=== PATIENT | female | born 1945 | race Caucasian/White ===

== ENCOUNTER 2020-08-31 02:21 | Inpatient (IN) ==
--- NOTE | 2020-08-31 02:38 | ERNOTE ---
Neuro HPI ER Record Date of Service: 08/31/20 Presenting Symptoms: confusion Time Seen by Provider: 08/31/20 02:29 Immunizations: IMMUNIZATION HX Immunizations Up to Date Yes History of Influenza Vaccine Yes Hx Pneumococcal Vaccination No Allergies/Adverse Reactions: Allergies Allergy/AdvReac Type Severity Reaction Status Date / Time indomethacin Allergy not known Verified 08/31/20 03:22 metformin [From Glucophage] Allergy not known Verified 08/31/20 03:22 Penicillins Allergy not known Verified 08/31/20 03:22 pioglitazone [From Actos] Allergy not known Verified 08/31/20 03:22 Ppavhwo-Atq-Men Reductase Allergy not known Verified 08/31/20 03:22 Inhibitor strawberry Allergy Hives Verified 08/31/20 03:22 Home Medications: HOME MEDICATIONS blood sugar diagnostic See Rx Instructions .ROUTE .COMPLEX #500 unspecified 04/17/19 [Last Taken Unknown] pen needle, diabetic 32 gauge x 532" See Dose Instructions .ROUTE .MEDSUPPLY #500 ea 05/21/20 [Last Taken Unknown] lorazepam 1 mg tablet 1 mg PO BID #30 tab 08/13/20 [Last Taken Unknown] Aspirin 325 mg PO DAILY 08/29/20 [Last Taken Unknown] Clopidogrel Bisulfate [Plavix] 75 mg PO DAILY 08/29/20 [Last Taken Unknown] Lisinopril 20 mg PO DAILY 08/29/20 [Last Taken Unknown] Metoprolol Tartrate 50 mg PO DAILY 08/29/20 [Last Taken Unknown] amlodipine 10 mg tablet 10 mg PO DAILY #90 tab 08/29/20 [Last Taken Unknown] insulin aspart U-100 100 unit/mL (3 mL) subcutaneous pen 15 unit SUBCUT TID #15 ml 08/29/20 [Last Taken Unknown] insulin detemir U-100 100 unit/mL (3 mL) subcutaneous pen 25 unit SUBCUT BID #15 ml 08/29/20 [Last Taken Unknown] - History of Present Illness Narrative: Patient was found unresponsive by family at home after she had gotten up to go to bathroom. EMS found unresponsive, bs 46 at arrival. admin 1 amp d50. pt here is arousable however confused, seems to be neglecting the right side, not able to follow commands. BS here is 178. she is sent immediately to [facility]. pt arrives back from [facility] and arrives. she is improving. able to follow more commands, less confused, no longer neglecting. she is A & O to person and place. able to move extremities, sensation intact. no facial droop. reports that she has been falling and has been weak. he doesn't know if she took her insulin and doesn't recall what Dr. Castro said to do at [facility]. She had appt on 08/29 and was seen in er also on 08/29 for fall on the knees. He has had difficulty getting her to move lately, after she broke her foot in April. Review of Systems - Narrative Narrative: unable at arrival - Review of Systems Constitutional: Present: weakness, malaise. Absent: fever, chills ENT: Present: no symptoms reported Respiratory: Present: no symptoms reported Cardiology: Present: no symptoms reported Neurological: Present: weakness - nonfocal Medical History (Last Reviewed 08/31/20 @ 02:35 by Patsy Madsen MD) Sleep apnea (Chronic) Hypertension (Chronic) Diverticulitis (Chronic) Diabetes mellitus (Chronic) CVA (cerebral vascular accident) (Chronic) Surgical History: Surgical History (Last Reviewed 08/31/20 @ 02:35 by Patsy Madsen MD) H/O adenoidectomy H/O tubal ligation History of cholecystectomy Family History: Family History (Last Reviewed 08/31/20 @ 02:36 by Patsy Madsen MD) Father ALS (amyotrophic lateral sclerosis) Mother Diabetes Social History: (Last Reviewed 08/31/20 @ 02:36 by Patsy Madsen MD) Social History: current occupational status: retired Tobacco: Smoking Status: Never smoker Alcohol: alcohol intake: never Substance Use: substance use type: does not use Exercise: frequency: 1-2 times per week Physical Exam - Physical Exam General Appearance: Present: moderate distress - confused, responds to verbal stimuli, looks left. does not follow commands, obese Head Exam: Present: normal inspection Eye Exam: Normal inspection: bilateral, PERRL: bilateral Ears, Nose, Throat: Present: normal except -, dry mucous membranes Neck: Present: normal inspection Respiratory: Present: no respiratory distress, lungs clear Cardiovascular/Chest: Present: regular rate, rhythm Gastrointestinal/Abdominal: Present: normal bowel sounds, nontender, soft Pelvic Exam: Present: other - erythematous, excoriated, unkempt, white discharge present, signs of yeast/ cheko Back Exam: Present: other - unable to fully examine, pt will not allow rolling/ turning Extremity Exam: Present: extremity edema - 2+, other - confused re: organisation and methods analyst exam, moves UE moves LE purposfully. intact sensation. skin is warm and dry. there is dry feces present on lower ext. Neurological Exam: Present: alert, disoriented to time. Absent: facial droop Progress - Results and Orders Patient's Lab Results:: I have reviewed the patient's lab results. Results and Orders: Laboratory Tests 08/31/20 08/31/20 08/31/20 03:00 03:00 03:00 WBC 17.0 H D Hgb 15.0 Hct 46.8 Plt Count 406 PT 10.1 INR (Anticoag Therapy) 0.97 PTT ([place]) 24.2 Sodium 139 Potassium 3.2 L D Chloride 101 Anion Gap 17.6 H BUN 19 Creatinine 1.28 BUN/Creatinine Ratio 14.8 Random Glucose 126 H D Calcium 9.9 Total Bilirubin 0.5 AST 11 ALT 17 L Troponin I Less than 0.017 Laboratory Tests 08/31/20 03:00 Lactic Acid, Venous 5.6 H* Laboratory Tests 08/31/20 03:44 Ur Specific [place] >=1.030 Urine Protein 100 H Urine Glucose (UA) 500 H Urine Ketones 5 Urine Blood 10 H Urine Nitrate Negative Urine Bilirubin 1 H Urine Urobilinogen Normal Ur Leukocyte Esterase 100 H Urine RBC None seen Urine WBC >50 H Ur Epithelial Cells None seen Urine Bacteria Trace Urine Yeast Few - 1+ H Laboratory Tests 08/31/20 03:45 SARS-CoV-2 (PCR) Not detected - Vital Signs Patient's Vital Signs:: I have reviewed the patient's vital signs. - EKG EKG #1 EKG: NSR EKG read: Interp. by me EKG Comments: EKG shows sinus tachycardia, rate is 112. There is left anterior fascicular block present. There is evidence of possible anterior and inferior LA of indeterminate age. There is no acute ST elevation or depression noted. - X-Ray X-Ray #1 X-Ray: chest Interpretation: Interp. by me X-ray Comments: poor quality d/t pt compliance. nonspecific generalized hazy opacifications r>l most likely d/t poor inspiration. - CT/Ultrasound CT/Ultrasound Narrative: CT scan shows no acute findings however the exam is difficult due to patient's noncompliance. no acute bleed - Progress/Reassessment Chief Complaint: Altered Mental Status Progress:: Improved Progress Note-Subjective: 08/31/20 03:49 Patient's symptoms continued to improve. IV fluids going she did require another amp of D50 here in the emergency department after receiving 1 in the field. Urine obtained by catheterization is quite dark and foul-smelling. She continued to be somewhat confused although was much more able to follow commands. 08/31/20 04:48 Patient stabilized using IV fluids, potassium replacement. Her blood sugar remained stable as well. She is given first dose of antibiotics for UTI, total of 2 L of IV fluids while in the emergency department. She is also given a dose of oral Diflucan due to vaginal yeast infection which will get worse during antibiotic treatment. Her Covid test is negative. Hospitalist is contacted and case is discussed. She does not meet sepsis criteria per se, she has elevated lactic acid most likely due to prolonged dehydration and poor perfusion as well as infection. The remainder of her vitals are stable although she is dehydrated. She will be admitted here for the UTI, generalized weakness, continued monitoring of the hypoglycemia associated with diabetes. Family can discuss with case management about the difficulty caring for her at home and possible skilled nursing placement. Departure Clinical Impression: UTI (urinary tract infection), Hypoglycemia due to type 2 diabetes mellitus, Generalized weakness, Hypokalemia, Yeast vaginitis - Departure Disposition: Still a patient Condition: Fair Referrals: Adore Castro MD [Primary Care Provider] -
[2020-08-31] MEDS ORDERED: DEXTROSE 50%-WATER 50 ML SYRG IV ONE (03:04)
[2020-08-31] MEDS ORDERED: NORMAL SALINE 1,000 ML IV ONE ×2 (03:10→04:20)
[2020-08-31 03:14] LABS: Hematocrit 46.8 % (37.0-47.0); Mean Corpuscular Hemoglobin 30.1 pg (27-31); Mean Corpuscular Hgb Conc 32.1 g/dl (32-36); Mean Platelet Volume 11.6 fl (8-12.5); Neutrophil # 13.9 K/mm3 (1.3-6.0); Neutrophil % 81.6 % (42-75.0); Platelet Count 406 K/mm3 (150-450); Red Blood Count 4.98 M/mm3 (4.2-5.4); Red Cell Distribution Width 14.4 % (11.5-14.0)
[2020-08-31 03:21] LABS: Prothrombin Time (Patient) 10.1 Seconds (9.1-10.7)
[2020-08-31 03:23] LABS: INR 0.97 INR (0.92-1.08); Partial Thrombolplastin Time 24.2 Seconds (24-32)
[2020-08-31 03:37] LABS: ALT 17 U/L (19-67); AST 11 U/L (0-48); Albumin * 2.8 gm/dl (3.4-5.0); Alkaline Phosphatase * 97 U/L (50-170); Anion Gap 17.6 mmol/L (6.8-13.8); BUN/Creatinine Ratio 14.8 (9.0-21.6); Bilirubin, Total 0.5 mg/dL (0.0-1.1); Blood Urea Nitrogen 19 mg/dL (3-23); Ca. Corrected For Albumin 10.5 mg/dL (8.4-10.2); Calcium * 9.9 mg/dL (7.9-10.9); Carbon Dioxide 23.6 mmol/L (24-32.6); Chloride 101 mmol/L (97-106); Glucose * 126 mg/dL (70-110); Potassium 3.2 mmol/L (3.4-4.6); Sodium 139 mmol/L (132-142); Troponin I Less than 0.017 ng/mL (0.00-0.10)
[2020-08-31] MEDS ORDERED: POTASSIUM CHLORIDE 20 MEQ TABLET.SA PO ONE (03:48)
[2020-08-31 03:57] LABS: Urine Bilirubin 1 mg/dl (NEGATIVE); Urine Ketone 5 mg/dL (NEGATIVE); Urine Nitrite Negative (NEGATIVE); Urine Protein 100 mg/dL (NEGATIVE); Urine Specific Gravity >=1.030 SP.GR. (1.005-1.010); Urine Urobilinogen Normal (NORMAL); Urine pH 5.5 pH (5.0-7.0)
[2020-08-31] MEDS ORDERED: cefTRIAXone SODIUM 1,000 MG/100 ML BAG IV ONE (03:57)
[2020-08-31 04:14] LABS: Urine Appearance Cloudy (CLEAR); Urine Bacteria TRACE; Urine Blood 10 /ul (NEGATIVE); Urine Color Yellow; Urine RBC None Seen /hpf (0-5); Urine WBC >50 /hpf (0-5); Urine Yeast Few - 1+
[2020-08-31] MEDS ORDERED: FLUCONAZOLE 100 MG TABLET PO ONE (04:35)
[2020-08-31] MEDS ORDERED: LORazepam 1 MG TABLET PO PRN (08:16)
[2020-08-31] MEDS: CLOPIDOGREL BISULFATE 75 MG TABLET PO SCH (09:09)
[2020-08-31] MEDS: LISINOPRIL 20 MG TABLET PO SCH (09:09)
[2020-08-31] MEDS: ASPIRIN 325 MG TABLET.DR PO SCH (09:09)
[2020-08-31] MEDS: METOPROLOL TARTRATE 50 MG TABLET PO SCH (09:09)
[2020-08-31] MEDS: amLODIPine BESYLATE 10 MG TABLET PO SCH (09:09)
[2020-08-31] MEDS: ACETAMINOPHEN 500 MG TABLET PO PRN (11:00)
[2020-08-31] MEDS: DICLOFENAC SODIUM 100 APPL TUBE TP SCH ×2 (11:01→20:19)
[2020-08-31] MEDS: INSULIN LISPRO 100 UNITS/ML VIAL SC SCH ×2 (11:54→16:47)
[2020-08-31] MEDS: INSULIN GLARGINE,HUM.REC.ANLOG 100 UNITS/ML VIAL SC SCH (20:20)
[2020-08-31] MEDS: NYSTATIN 15 APPL BTL TP SCH (20:24)
--- NOTE | 2020-08-31 23:27 | HP ---
Chief Complaint - Chief Complaint Date of Service: 08/31/20 Time of Service: 10:15 Chief Complaint: Generalized weakness History of Present Illness: Joe is a 75 yo female that was found unresponsive by family at home after she had gotten up to go to the bathroom. EMS was called and arrived to find her unresponsive with a blood sugar of 46. They administered 1 amp of D50. By the time she arrived to the ER she was arousable but confused. She appeared to be neglecting her right side and was sent to Head Ct which was negative for stroke. In the ER she continued to improve in alertness. She has reportedly been falling lately. A few days ago she fell outside of the clinic trying to get into her truck. She landed awkwardly on her knees and legs bent underneath her. She was taken to the ER for that event but there were no new f ractures. She previously broke her foot in April and those fractures have been healing. She does not know why she has been more weak and does not know why her blood sugars were so low. She does not think there has been a change in her insulin and she thinks that she has been taking it correctly. Medical History (Last Reviewed 08/31/20 @ 06:57 by Moni Thompson RN) Sleep apnea (Chronic) Hypertension (Chronic) Diverticulitis (Chronic) Diabetes mellitus (Chronic) CVA (cerebral vascular accident) (Chronic) Surgical History: Surgical History (Last Reviewed 08/31/20 @ 06:57 by Moni Thompson RN) H/O adenoidectomy H/O tubal ligation History of cholecystectomy Family History: Family History (Last Reviewed 08/31/20 @ 06:58 by Moni Thompson RN) Father ALS (amyotrophic lateral sclerosis) Mother Diabetes Social History: (Last Reviewed 08/31/20 @ 06:58 by Moni Thompson RN) Social History: current occupational status: retired Tobacco: Smoking Status: Never smoker Alcohol: alcohol intake: never Substance Use: substance use type: does not use Exercise: frequency: 1-2 times per week Review Of Systems (GEN) - Review of Systems Generalized/Overall Review: Present: Weakness, Fatigue. Absent: Chills, Fever EENTM: Present: No Symptoms Reported Respiratory: Absent: Cough, Shortness of Breath Cardiac: Absent: Chest Pain, Edema, Palpitations Abdominal: Absent: Nausea, Vomiting Genitourinary: Absent: Burning, Urgency, Frequency Musculoskeletal: Present: Joint Pain, Joint Swelling Neurological: Present: Weakness. Absent: Headache, Anxiety Skin: Present: No Symptoms Reported Endocrine: Present: No Symptoms Reported Immunizations: IMMUNIZATION HX Immunizations Up to Date Yes History of Influenza Vaccine Yes Hx Pneumococcal Vaccination No Allergies/Adverse Reactions: Allergies Allergy/AdvReac Type Severity Reaction Status Date / Time indomethacin Allergy not known Verified 08/31/20 06:58 metformin [From Glucophage] Allergy not known Verified 08/31/20 06:58 Penicillins Allergy not known Verified 08/31/20 06:58 pioglitazone [From Actos] Allergy not known Verified 08/31/20 06:58 Nkmzhhc-Uno-Rsk Reductase Allergy not known Verified 08/31/20 06:58 Inhibitor strawberry Allergy Hives Verified 08/31/20 06:58 Home Medications: HOME MEDICATIONS blood sugar diagnostic See Rx Instructions .ROUTE .COMPLEX #500 unspecified 04/17/19 [Last Taken Unknown] pen needle, diabetic 32 gauge x " See Dose Instructions .ROUTE .MEDSUPPLY #500 ea 05/21/20 [Last Taken Unknown] lorazepam 1 mg tablet 1 mg PO BID #30 tab 08/13/20 [Last Taken Unknown] Aspirin 325 mg PO DAILY 08/29/20 [Last Taken Unknown] Clopidogrel Bisulfate [Plavix] 75 mg PO DAILY 08/29/20 [Last Taken Unknown] Lisinopril 20 mg PO DAILY 08/29/20 [Last Taken Unknown] Metoprolol Tartrate 50 mg PO DAILY 08/29/20 [Last Taken Unknown] amlodipine 10 mg tablet 10 mg PO DAILY #90 tab 08/29/20 [Last Taken Unknown] insulin aspart U-100 100 unit/mL (3 mL) subcutaneous pen 15 unit SUBCUT TID #15 ml 08/29/20 [Last Taken Unknown] Insulin Detemir [Levemir FlexTouch U-100 Insuln] 25 unit SUBCUT HS 08/31/20 [Last Taken Unknown] Exam - Exam Vital Signs: Vital Signs - Last Taken Temp 36.7 C 08/31/20 22:25 Pulse 96 08/31/20 22:25 Resp 20 08/31/20 22:25 BP 141/60 08/31/20 22:25 Pulse Ox 96 08/31/20 22:25 Constitutional: Present: Alert, Oriented x3, Cooperative ENT Exam: Present: hearing grossly normal Eye Exam: bilateral eye: normal inspection Respiratory: Present: lungs clear, normal breath sounds, no respiratory distress Cardiovascular/Chest: Present: regular rate, rhythm, no murmur Peripheral Pulses: radial (R): 2+, radial (L): 2+ Abdomen: Present: Normal bowel sounds, soft, nontender, nondistended, no rebound tenderness, obese Skin Exam: Present: normal color, warm/dry, no cyanosis Neurologic: Present: alert, normal mood/affect, oriented x 3 Appearance: Present: appropriate appearance, appropriate insight Eye contact: Present: cooperative, good eye contact, normal speech Thoughts: Present: normal thought pattern, no apparent hallucination Diagnostic Studies: Abnormal Lab Results 08/31/20 08/31/20 08/31/20 Range/Units 03:00 03:00 03:00 WBC 17.0 H D (4.0-10.5) K/mm3 RDW 14.4 H (11.5-14.0) % Immature Gran % (Auto) 0.50 H (0.001-0.429) % Immature Gran # (Auto) 0.08 H (0.000-0.0310) K/mm3 Neutrophils % 81.6 H (42-75.0) % Lymphocytes % 8.4 L (20-51) % Neutrophils # 13.9 H (1.3-6.0) K/mm3 Lymphocytes # 1.43 L (1.5-3.5) k/mm3 Monocytes # 1.3 H (0.0-1.0) k/mm3 ESR 38 H (0-15) mm/hr Potassium 3.2 L D (3.4-4.6) mmol/L Carbon Dioxide 23.6 L (24-32.6) mmol/L Anion Gap 17.6 H (6.8-13.8) mmol/L Est GFR (Non-Af Amer) 43 L (60-130) mL/min Random Glucose 126 H D (70-110) mg/dL Lactic Acid, Venous (0.4-2.0) mmol/L Calcium Adj for Albumin 10.5 H (8.4-10.2) mg/dL ALT 17 L (19-67) U/L Albumin 2.8 L (3.4-5.0) gm/dl Urine Protein (NEGATIVE) mg/dL Urine Glucose (UA) (NEGATIVE) mg/dL Urine Blood (NEGATIVE) /ul Urine Bilirubin (NEGATIVE) mg/dl Ur Leukocyte Esterase (NEGATIVE) /ul Urine WBC (0-5) /hpf Urine Yeast (NONE) 08/31/20 08/31/20 Range/Units 03:00 03:44 WBC (4.0-10.5) K/mm3 RDW (11.5-14.0) % Immature Gran % (Auto) (0.001-0.429) % Immature Gran # (Auto) (0.000-0.0310) K/mm3 Neutrophils % (42-75.0) % Lymphocytes % (20-51) % Neutrophils # (1.3-6.0) K/mm3 Lymphocytes # (1.5-3.5) k/mm3 Monocytes # (0.0-1.0) k/mm3 ESR (0-15) mm/hr Potassium (3.4-4.6) mmol/L Carbon Dioxide (24-32.6) mmol/L Anion Gap (6.8-13.8) mmol/L Est GFR (Non-Af Amer) (60-130) mL/min Random Glucose (70-110) mg/dL Lactic Acid, Venous 5.6 H* (0.4-2.0) mmol/L Calcium Adj for Albumin (8.4-10.2) mg/dL ALT (19-67) U/L Albumin (3.4-5.0) gm/dl Urine Protein 100 H (NEGATIVE) mg/dL Urine Glucose (UA) 500 H (NEGATIVE) mg/dL Urine Blood 10 H (NEGATIVE) /ul Urine Bilirubin 1 H (NEGATIVE) mg/dl Ur Leukocyte Esterase 100 H (NEGATIVE) /ul Urine WBC >50 H (0-5) /hpf Urine Yeast Few - 1+ H (NONE) Laboratory Results WBC 17.0 K/mm3 (4.0-10.5) H D 08/31/20 03:00 RBC 4.98 M/mm3 (4.2-5.4) 08/31/20 03:00 Hgb 15.0 gm/dL (12.5-16.0) 08/31/20 03:00 Hct 46.8 % (37.0-47.0) 08/31/20 03:00 MCV 94.0 fl (78-100) 08/31/20 03:00 MCH 30.1 pg (27-31) 08/31/20 03:00 MCHC 32.1 g/dl (32-36) 08/31/20 03:00 RDW 14.4 % (11.5-14.0) H 08/31/20 03:00 Plt Count 406 K/mm3 (150-450) 08/31/20 03:00 MPV 11.6 fl (8-12.5) 08/31/20 03:00 Immature Gran % (Auto) 0.50 % (0.001-0.429) H 08/31/20 03:00 Immature Gran # (Auto) 0.08 K/mm3 (0.000-0.0310) H 08/31/20 03:00 Neutrophils % 81.6 % (42-75.0) H 08/31/20 03:00 Lymphocytes % 8.4 % (20-51) L 08/31/20 03:00 Monocytes % 7.7 % (0.0-9) 08/31/20 03:00 Eosinophils % 1.4 % (0.0-3.0) 08/31/20 03:00 Basophils % 0.4 % (0.0-1.0) 08/31/20 03:00 Nucleated RBC % 0.0 k/mm3 (0-1) 08/31/20 03:00 Neutrophils # 13.9 K/mm3 (1.3-6.0) H 08/31/20 03:00 Lymphocytes # 1.43 k/mm3 (1.5-3.5) L 08/31/20 03:00 Monocytes # 1.3 k/mm3 (0.0-1.0) H 08/31/20 03:00 Eosinophils # 0.2 k/mm3 (0.0-0.7) 08/31/20 03:00 Absolute Basophils 0.1 k/mm3 (0.0-0.1) 08/31/20 03:00 ESR 38 mm/hr (0-15) H 08/31/20 03:00 PT 10.1 Seconds (9.1-10.7) 08/31/20 03:00 INR (Anticoag Therapy) 0.97 INR (0.92-1.08) 08/31/20 03:00 PTT (Sanjiv) 24.2 Seconds (24-32) 08/31/20 03:00 Sodium 139 mmol/L (132-142) 08/31/20 03:00 Plasma Sodium 139 mmol/L (130-142) 08/31/20 03:00 Potassium 3.2 mmol/L (3.4-4.6) L D 08/31/20 03:00 Chloride 101 mmol/L (97-106) 08/31/20 03:00 Carbon Dioxide 23.6 mmol/L (24-32.6) L 08/31/20 03:00 Anion Gap 17.6 mmol/L (6.8-13.8) H 08/31/20 03:00 BUN 19 mg/dL (3-23) 08/31/20 03:00 Creatinine 1.28 mg/dL (0.4-1.4) 08/31/20 03:00 Est GFR (Non-Af Amer) 43 mL/min (60-130) L 08/31/20 03:00 BUN/Creatinine Ratio 14.8 (9.0-21.6) 08/31/20 03:00 Random Glucose 126 mg/dL (70-110) H D 08/31/20 03:00 Lactic Acid, Venous 1.8 mmol/L (0.4-2.0) 08/31/20 06:12 Calcium 9.9 mg/dL (7.9-10.9) 08/31/20 03:00 Calcium Adj for Albumin 10.5 mg/dL (8.4-10.2) H 08/31/20 03:00 Total Bilirubin 0.5 mg/dL (0.0-1.1) 08/31/20 03:00 AST 11 U/L (0-48) 08/31/20 03:00 ALT 17 U/L (19-67) L 08/31/20 03:00 Alkaline Phosphatase 97 U/L (50-170) 08/31/20 03:00 Troponin I Less than 0.017 ng/mL (0.00-0.10) 08/31/20 03:00 Total Protein 7.0 gm/dL (6.2-8.2) 08/31/20 03:00 Albumin 2.8 gm/dl (3.4-5.0) L 08/31/20 03:00 Urine Color Yellow 08/31/20 03:44 Urine Appearance Cloudy (CLEAR) 08/31/20 03:44 Urine pH 5.5 pH (5.0-7.0) 08/31/20 03:44 Ur Specific [place] >=1.030 SP.GR. (1.005-1.010) 08/31/20 03:44 Urine Protein 100 mg/dL (NEGATIVE) H 08/31/20 03:44 Urine Glucose (UA) 500 mg/dL (NEGATIVE) H 08/31/20 03:44 Urine Ketones 5 mg/dL (NEGATIVE) 08/31/20 03:44 Urine Blood 10 /ul (NEGATIVE) H 08/31/20 03:44 Urine Nitrate Negative (NEGATIVE) 08/31/20 03:44 Urine Bilirubin 1 mg/dl (NEGATIVE) H 08/31/20 03:44 Urine Urobilinogen Normal EU/dl (NORMAL) 08/31/20 03:44 Ur Leukocyte Esterase 100 /ul (NEGATIVE) H 08/31/20 03:44 Urine RBC None seen /hpf (0-5) 08/31/20 03:44 Urine WBC >50 /hpf (0-5) H 08/31/20 03:44 Ur Epithelial Cells None seen /hpf (0-5) 08/31/20 03:44 Urine Bacteria Trace (NONE) 08/31/20 03:44 Urine Yeast Few - 1+ (NONE) H 08/31/20 03:44 Urine Culture Comments Culture to follow 08/31/20 03:44 SARS-CoV-2 (PCR) Not detected (NotDetected) 08/31/20 03:45 Assessment/Plan - Narrative Narrative: Joe is a 75 yo female admitted for acute metabolic encephalopathy suspected to be secondary to hypoglycemia. Unclear as to the cause. It could be infectious vs inappropriate dosing of insulin vs other. She does not know what happened. Blood sugars were 46 when she was found unresponsive by EMS. Improving glucose improved mentation. Will continue home insulin and monitor blood sugars. Will check urine for source of infection. No current deficits to suggest stroke and head CT was normal. Will need to monitor over another midnights to make sure she does not have another hypoglycemic episode. She is very weak and will likely need physical therapy at some point. - Assessment/Plan (1) Acute metabolic encephalopathy due to hypoglycemia Problem: Acute (2) Contusion of knee Problem: Acute (3) Generalized weakness Problem: Acute
[2020-09-01] MEDS: INSULIN LISPRO 100 UNITS/ML VIAL SC SCH ×3 (07:36→17:26)
[2020-09-01] MEDS: METOPROLOL TARTRATE 50 MG TABLET PO SCH (09:09)
[2020-09-01] MEDS: LISINOPRIL 20 MG TABLET PO SCH (09:09)
[2020-09-01] MEDS: amLODIPine BESYLATE 10 MG TABLET PO SCH (09:09)
[2020-09-01] MEDS: DICLOFENAC SODIUM 100 APPL TUBE TP SCH ×2 (09:09→20:00)
[2020-09-01] MEDS: CLOPIDOGREL BISULFATE 75 MG TABLET PO SCH (09:09)
[2020-09-01] MEDS: ASPIRIN 325 MG TABLET.DR PO SCH (09:09)
[2020-09-01] MEDS: NYSTATIN 15 APPL BTL TP SCH ×2 (09:10→20:01)
[2020-09-01] MEDS: ACETAMINOPHEN 500 MG TABLET PO PRN ×2 (09:11→17:26)
[2020-09-01 10:44] LABS: Hematocrit 40.6 % (37.0-47.0); Mean Cell Volume 94.2 fl (78-100); Mean Corpuscular Hemoglobin 30.2 pg (27-31); Mean Platelet Volume 11.6 fl (8-12.5); Neutrophil # 5.7 K/mm3 (1.3-6.0); Neutrophil % 69.5 % (42-75.0); Platelet Count 307 K/mm3 (150-450); Red Blood Count 4.31 M/mm3 (4.2-5.4); Red Cell Distribution Width 14.6 % (11.5-14.0); White Blood Count 8.1 K/mm3 (4.0-10.5)
[2020-09-01 11:00] LABS: Albumin * 2.2 gm/dl (3.4-5.0); BUN/Creatinine Ratio 16.8 (9.0-21.6); Bilirubin, Total 0.3 mg/dL (0.0-1.1); Ca. Corrected For Albumin 10.3 mg/dL (8.4-10.2); Calcium * 9.2 mg/dL (7.9-10.9); Carbon Dioxide 27.9 mmol/L (24-32.6); Potassium 3.9 mmol/L (3.4-4.6); Total Protein 5.2 gm/dL (6.2-8.2)
[2020-09-01] MEDS: INSULIN GLARGINE,HUM.REC.ANLOG 100 UNITS/ML VIAL SC SCH (20:09)
[2020-09-01] MEDS ORDERED: DOCUSATE SODIUM 100 MG CAPSULE PO SCH (21:00)
--- NOTE | 2020-09-01 23:53 | PN ---
Subjective - Date and Time Seen Date: 09/01/20 Time: 10:10 Subjective Narrative: Joe reports feeling more awake and less fatigued today. Blood sugars have been elevated, but no lows. She is unable to get out of bed due to knee and ankle pain from her fails. Xrays previously done showed no fracture. Objective - Vitals Vitals: Last Vital Signs Temp 36.6 C 09/01/20 21:57 Pulse 105 H 09/01/20 21:57 Resp 20 09/01/20 21:57 BP 141/76 09/01/20 21:57 Pulse Ox 97 09/01/20 21:57 - Abnormal Lab Findings Abnormal Lab Findings: Abnormal Lab Results 09/01/20 09/01/20 Range/Units 10:31 10:31 RDW 14.6 H (11.5-14.0) % Lymphocytes % 16.4 L (20-51) % Eosinophils % 4.8 H (0.0-3.0) % Lymphocytes # 1.33 L (1.5-3.5) k/mm3 Calcium Adj for Albumin 10.3 H (8.4-10.2) mg/dL ALT 18 L (19-67) U/L Total Protein 5.2 L (6.2-8.2) gm/dL Albumin 2.2 L (3.4-5.0) gm/dl - Exam Constitutional: Present: Alert, Oriented x3, Cooperative ENT Exam: Present: hearing grossly normal Respiratory: Present: lungs clear, normal breath sounds, no respiratory distress Cardiovascular/Chest: Present: regular rate, rhythm, no murmur Abdomen: Present: Normal bowel sounds, soft, nontender, nondistended, no rebound tenderness Skin Exam: Present: normal color, warm/dry, no cyanosis Eye contact: Present: cooperative, good eye contact, normal speech Thoughts: Present: normal thought pattern, no apparent hallucination Cauti Physician Documentation - Urinary Catheter Management Urethral (Renee) Date of Insertion: 08/31/20 Time of Insertion: 03:40 Date of Removal: 08/31/20 Time of Removal: 13:10 Assessment/Plan Plan Narrative: No further hypoglycemia, but she has significant lower extremity weakness and bilateral knee pain and ankle pain from recent fall. Unable to get out of bed. Xrays previously done showed no fractures. May need PT. - Problems/Diagnosis (1) Acute metabolic encephalopathy due to hypoglycemia Problem: Resolved (2) Contusion of knee Problem: Acute (3) Generalized weakness Problem: Acute
[2020-09-02 06:44] LABS: Hematocrit 40.7 % (37.0-47.0); Mean Cell Volume 93.3 fl (78-100); Mean Corpuscular Hemoglobin 29.8 pg (27-31); Mean Corpuscular Hgb Conc 31.9 g/dl (32-36); Mean Platelet Volume 11.7 fl (8-12.5); Neutrophil # 4.2 K/mm3 (1.3-6.0); Platelet Count 297 K/mm3 (150-450); Red Blood Count 4.36 M/mm3 (4.2-5.4); Red Cell Distribution Width 14.5 % (11.5-14.0); White Blood Count 6.5 K/mm3 (4.0-10.5)
[2020-09-02 06:47] LABS: Albumin * 2.2 gm/dl (3.4-5.0); Anion Gap 12.5 mmol/L (6.8-13.8); BUN/Creatinine Ratio 15.6 (9.0-21.6); Bilirubin, Total 0.4 mg/dL (0.0-1.1); Ca. Corrected For Albumin 10.2 mg/dL (8.4-10.2); Calcium * 9.1 mg/dL (7.9-10.9); Carbon Dioxide 26.5 mmol/L (24-32.6); Total Protein 5.7 gm/dL (6.2-8.2)
[2020-09-02] MEDS: ACETAMINOPHEN 500 MG TABLET PO PRN (07:37)
[2020-09-02] MEDS: INSULIN LISPRO 100 UNITS/ML VIAL SC SCH (07:38)
[2020-09-02] MEDS: CLOPIDOGREL BISULFATE 75 MG TABLET PO SCH (08:12)
[2020-09-02] MEDS: LISINOPRIL 20 MG TABLET PO SCH (08:12)
[2020-09-02] MEDS: METOPROLOL TARTRATE 50 MG TABLET PO SCH (08:12)
[2020-09-02] MEDS: amLODIPine BESYLATE 10 MG TABLET PO SCH (08:12)
[2020-09-02] MEDS: DICLOFENAC SODIUM 100 APPL TUBE TP SCH (08:12)
[2020-09-02] MEDS: NYSTATIN 15 APPL BTL TP SCH (08:12)
[2020-09-02] MEDS: ASPIRIN 325 MG TABLET.DR PO SCH (08:12)
--- NOTE | 2020-09-02 09:21 | DS ---
(1) Hypoglycemia Problem: Acute (2) Acute metabolic encephalopathy due to hypoglycemia Problem: Resolved (3) Generalized weakness Problem: Acute (4) UTI (urinary tract infection) Problem: Acute (5) Diabetes mellitus Problem: Chronic Qualifiers: Diabetes mellitus type: type 2 Diabetes mellitus shelter insulin use: with tank terminal gauger use Diabetes mellitus complication status: without complication Qualified Code(s): E11.9 - Type 2 diabetes mellitus without complications (6) Hypertension Problem: Chronic Qualifiers: Hypertension type: essential hypertension Qualified Code(s): I10 - Essential (primary) hypertension (7) Sleep apnea Problem: Chronic Qualifiers: Sleep apnea type: obstructive Qualified Code(s): G47.33 - Obstructive sleep apnea (adult) (pediatric) (8) History of CVA (cerebrovascular accident) Problem: Chronic Date of Discharge:: 09/02/20 Hospital Course: Joe Jeffers is a 75 yo female with past medical history significant for CVA, obstructive sleep apnea, hypertension, diabetes mellitus type 2 who was admitted on 08/31/2020 for unresponsiveness and hypoglycemia. She was found unresponsive by family at home after she had gotten up to go to the bathroom. EMS was called and arrived to find her unresponsive with a blood sugar of 46. They administered 1 amp of D50. By the time she arrived to the ER she was arousable but confused. She appeared to be neglecting her right side and was sent to [facility] which was negative for stroke. In the ER she continued to improve in alertness. She has reportedly been falling lately. A few days ago she fell outside of the clinic trying to get into her truck. She landed awkwardly on her knees and legs bent underneath her. She was taken to the ER for that event but there were no new fractures. She previously broke her foot in April and those fractures have been healing. She does not know why she has been more weak and does not know why her blood sugars were so low. She does not think there has been a change in her insulin and she thinks that she has been taking it correctly. She was in the clinic on 08/29/2020 with complaints that her blood sugar have been running high and that she broke her right foot in April. I recommended physical therapy and told her that we were going to do blood work and will be calling her with the results and the necessary medication dose adjustments. We never was able to call her of the results because she got admitted for low blood sugar over the weekend. I told her it is possible that she was starting to have a urinary tract infection and that is why her blood sugars were running high. Her UTI could have caused her to have altered mental status and she gave herself a higher dose of insulin or she could have missed a meal and gave herself her usual insulin. She says she has no memory at all of why her blood sugar went low and of her admission to the hospital. She is currently awake alert oriented x3 and as per physical therapy is back to her baseline. We will discharge her on on Lantus and Humalog with sliding scale, antibiotics. We will send her home on oral antibiotic. Her yeast could be just a colonization and will wait for final identification. Procedures Performed: none Results and Findings: Pending Mircobiology Results 08/31/20 03:42 Urine,Catheterized Urine Culture - Preliminary Strep Agalactiae Group B Yeast Species 08/31/20 04:00 Blood Blood Culture - Preliminary NO GROWTH AFTER 48 HOURS 08/31/20 03:00 Blood Blood Culture - Preliminary NO GROWTH AFTER 48 HOURS Lab Pending Results 08/31/20 03:00: WBC 17.0 H D, RBC 4.98, Hgb 15.0, Hct 46.8, MCV 94.0, MCH 30.1, MCHC 32.1, RDW 14.4 H, Plt Count 406, MPV 11.6, Immature Gran % (Auto) 0.50 H, Immature Gran # (Auto) 0.08 H, Neutrophils % 81.6 H, Lymphocytes % 8.4 L, Monocytes % 7.7, Eosinophils % 1.4, Basophils % 0.4, Nucleated RBC % 0.0, Neutrophils # 13.9 H, Lymphocytes # 1.43 L, Monocytes # 1.3 H, Eosinophils # 0.2, Absolute Basophils 0.1 08/31/20 03:00: ESR 38 H 08/31/20 03:00: PT 10.1, INR (Anticoag Therapy) 0.97, PTT ([place]) 24.2 08/31/20 03:00: Sodium 139, Plasma Sodium 139, Potassium 3.2 L D, Chloride 101, Carbon Dioxide 23.6 L, Anion Gap 17.6 H, BUN 19, Creatinine 1.28, Est GFR (Non- Af Amer) 43 L, BUN/Creatinine Ratio 14.8, Random Glucose 126 H D, Calcium 9.9, Calcium Adj for Albumin 10.5 H, Total Bilirubin 0.5, AST 11, ALT 17 L, Alkaline Phosphatase 97, Troponin I Less than 0.017, Total Protein 7.0, Albumin 2.8 L 08/31/20 03:00: Lactic Acid, Venous 5.6 H* 08/31/20 03:44: Urine Color Yellow, Urine Appearance Cloudy, Urine pH 5.5, Ur Specific [place] >=1.030, Urine Protein 100 H, Urine Glucose (UA) 500 H, Urine Ketones 5, Urine Blood 10 H, Urine Nitrate Negative, Urine Bilirubin 1 H, Urine Urobilinogen Normal, Ur Leukocyte Esterase 100 H, Urine RBC None seen, Urine WBC >50 H, Ur Epithelial Cells None seen, Urine Bacteria Trace, Urine Yeast Few - 1+ H, Urine Culture Comments Culture to follow 08/31/20 03:45: SARS-CoV-2 (PCR) Not detected 08/31/20 06:12: Lactic Acid, Venous 1.8 09/01/20 10:31: WBC 8.1 D, RBC 4.31, Hgb 13.0, Hct 40.6, MCV 94.2, MCH 30.2, MCHC 32.0, RDW 14.6 H, Plt Count 307, MPV 11.6, Immature Gran % (Auto) 0.40, Immature Gran # (Auto) 0.03, Neutrophils % 69.5, Lymphocytes % 16.4 L, Monocytes % 8.5, Eosinophils % 4.8 H, Basophils % 0.4, Nucleated RBC % 0.0, Neutrophils # 5.7, Lymphocytes # 1.33 L, Monocytes # 0.7, Eosinophils # 0.4, Absolute Basophils 0.0 09/01/20 10:31: Sodium 139, Plasma Sodium 139, Potassium 3.9 D, Chloride 104, Carbon Dioxide 27.9, Anion Gap 11.0, BUN 16, Creatinine 0.95, Est GFR (Non-Af Amer) 61 D, BUN/Creatinine Ratio 16.8, Random Glucose 108, Calcium 9.2, Calcium Adj for Albumin 10.3 H, Total Bilirubin 0.3, AST 7, ALT 18 L, Alkaline Phosphatase 76, Total Protein 5.2 L, Albumin 2.2 L 09/02/20 06:20: WBC 6.5, RBC 4.36, Hgb 13.0, Hct 40.7, MCV 93.3, MCH 29.8, MCHC 31.9 L, RDW 14.5 H, Plt Count 297, MPV 11.7, Immature Gran % (Auto) 0.30, Immature Gran # (Auto) 0.02, Neutrophils % 64.0, Lymphocytes % 20.2, Monocytes % 8.6, Eosinophils % 6.3 H, Basophils % 0.6, Nucleated RBC % 0.0, Neutrophils # 4.2, Lymphocytes # 1.31 L, Monocytes # 0.6, Eosinophils # 0.4, Absolute Basophils 0.0 09/02/20 06:20: Sodium 138, Plasma Sodium 140, Potassium 4.0, Chloride 103, Carbon Dioxide 26.5, Anion Gap 12.5, BUN 12, Creatinine 0.77, Est GFR (Non-Af Amer) 78 D, BUN/Creatinine Ratio 15.6, Random Glucose 241 H D, Calcium 9.1, Calcium Adj for Albumin 10.2, Total Bilirubin 0.4, AST 10, ALT 13 L, Alkaline Phosphatase 75, Total Protein 5.7 L, Albumin 2.2 L Discharge Location: Home Disposition: Home self-care Condition: Stable Discharge Activity: Activity as tolerated Discharge Diet: Consistent carbs Referrals: Adore Castro MD [Primary Care Provider] - Additional Patient Instructions (free text): Follow up with Dr. Castro WednesdaySeptember 09 at 1:30 p.m. Prescriptions (Any new or edited meds): Insulin Aspart [Insulin Aspart Flexpen] 10 unit SUBCUT TID #15 ml Insulin Detemir [Levemir Flextouch] 30 unit SUBCUT HS #1 ml Transmission Status: Pending to [place] Nystatin [Mycostatin Powder] 1 appl TP BID #1 btl Transmission Status: Pending to [place] Cefdinir [Omnicef] 300 mg PO Q12H #10 cap Transmission Status: Pending to [place] Acetaminophen [Tylenol] 1,000 mg PO Q6H PRN #30 tab PRN Reason: Mild Pain (Pain Scale 1-3) Transmission Status: Pending to [facility], [place], [place] Complete Home Medications List: Complete Home Medication List: blood sugar diagnostic See Rx Instructions .ROUTE .COMPLEX #500 unspecified 04/17/19 pen needle, diabetic 32 gauge x " See Dose Instructions .ROUTE .MEDSUPPLY #500 ea 05/21/20 lorazepam 1 mg tablet 1 mg PO BID #30 tab 08/13/20 Aspirin 325 mg PO DAILY 08/29/20 Clopidogrel Bisulfate [Plavix] 75 mg PO DAILY 08/29/20 Lisinopril 20 mg PO DAILY 08/29/20 Metoprolol Tartrate 50 mg PO DAILY 08/29/20 amlodipine 10 mg tablet 10 mg PO DAILY #90 tab 08/29/20 Acetaminophen [Tylenol] 1,000 mg PO Q6H PRN #30 tab 09/02/20 Cefdinir [Omnicef] 300 mg PO Q12H #10 cap 09/02/20 Insulin Aspart [Insulin Aspart Flexpen] 10 unit SUBCUT TID #15 ml 09/02/20 Insulin Detemir [Levemir Flextouch] 30 unit SUBCUT HS #1 ml 09/02/20 Nystatin [Mycostatin Powder] 1 appl TP BID #1 btl 09/02/20 Forms: Patient Portal Registration
[2020-09-02] MEDS ORDERED: INSULIN LISPRO 100 UNITS/ML VIAL SC SCH ×2 (12:00)
[2020-09-02 14:48] VITALS: BP 133/61
[2020-09-02] MEDS ORDERED: INSULIN GLARGINE,HUM.REC.ANLOG 100 UNITS/ML VIAL SC SCH (21:00)
== END 2020-09-02 15:29 | disposition home or self-care (01) | DRG 637 ==
LOC: ER 02:21 → MS 04:46
PROVIDERS: ADMIT Family Medicine; ATTEND Internal Medicine
DX: Y93.9 Activity, unspecified; I10 Essential (primary) hypertension; R53.1 Weakness; G93.41 Metabolic encephalopathy; Z79.4 Long term (current) use of insulin; N39.0 Urinary tract infection, site not specified; S92.901A Unspecified fracture of right foot, initial encounter for closed fracture; Z86.73 Personal history of transient ischemic attack (TIA), and cerebral infarction without residual deficits; S80.212A Abrasion, left knee, initial encounter; E11.649 Type 2 diabetes mellitus with hypoglycemia without coma; G47.33 Obstructive sleep apnea (adult) (pediatric); N18.31 Chronic kidney disease, stage 3a; S93.401A Sprain of unspecified ligament of right ankle, initial encounter; E78.2 Mixed hyperlipidemia